=== PATIENT | male | born 1985 | race Caucasian/White ===

== ENCOUNTER 2017-08-29 04:53 | Emergency (ER) | payer OTHER ==
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
== END 2017-08-29 05:51 | disposition home or self-care (01) ==
LOC: JD.ED 04:53
DX: S05.02XA Injury of conjunctiva and corneal abrasion without foreign body, left eye, initial encounter (principal); H11.32 Conjunctival hemorrhage, left eye; W45.8XXA Other foreign body or object entering through skin, initial encounter
CPT/HCPCS: 99283; 99284